=== PATIENT | female | born 1980 | race Caucasian/White ===

== ENCOUNTER 2016-12-11 18:26 | Emergency (ER) | payer MEDICAID ==
[~2016-12-11] VITALS: Ht 170.2 cm; Wt 56.7 kg
[~2016-12-11 18:26] MED LIST: AC500T PO; ACHYD1T PO; ALBU17AE23 IH; ALBU8.5H2 IH; ALBU8.5H2 INH; ALPR1T PO; ALPR1TAB7; AZIT-21 PO; AZIT200S47 PO; CEFD300C PO; CEPH-38 PO; CIPR500T4 PO; CLIN-62 PO; CLIN300C3 PO; CYCL10TA9 PO; DCS100C PO; DESV100T; DESV100T PO; FLC100T1 PO; FLINTSTONE1 TAB.CHE4 PO; GENT15DR4 LEFT EAR; HYDR-34 PO; HYDR-757 PO; HYDR1TAB PO; HYDR1TAB75 PO; HYDR30CR87 TP; IBP800T PO; LACT1CAP66 PO; METR500T PO; MULT-241 PO; MUPI1OIN5 NS; NAPR-243 PO; NITR100C3 PO; OMEP-10 PO; ONDAN4ODT PO; PENI500T PO; PREN1TAB39 PO; SULF-222 PO; TRAM-21 PO; TRM50T PO
[2016-12-11] MEDS ORDERED: ESCI10TA55 (19:24)
[2016-12-11] MEDS ORDERED: ALPR0.5T7 (19:24)
--- NOTE | 2016-12-11 19:37 | ED GU-Female ---
General Chief Complaint: -Female Stated Complaint: CYST/PELVIC PAIN Nursing Triage Note: VAGINAL PAIN Nursing Sepsis Screen: No Definite Risk Source: patient, other (friend) Exam Limitations: other (History difficult as patient is agitated and does not want to answer questions. ) History of Present Illness Time seen by provider: 19:36 Initial Comments 36 yo female patient presents to the emergency department with c/o suprapubic pain radiating into the right lower quadrant and vaginal region. States also radiates into the low back. Does have a h/o endometriosis. has had a hysterectomy and left oophorectomy. had n/v yesterday. History difficult as patient is agitated and does not want to answer questions. Timing/Duration: yesterday, getting worse Severity/Quality: aching, sharp Location: suprapubic Radiation: RLQ, back (rt low back), vaginal Activities at Onset: none Prior Genitourinary Problems: none Sexual [place] History: less than 2 months ago, single partner Modifying Factors: Worsens With Movement, Worsens With Palpation Allergies and Home Medications Allergies Coded Allergies: Penicillins (Unverified Allergy, Unknown, 02/04/13) acetaminophen (Unverified Allergy, Unknown, NAUSEA, 07/17/14) propoxyphene napsylate (Unverified Allergy, Unknown, NAUSEA, 07/17/14) Home Medications Albuterol Sulfate 8.5 Gm Aer.w.adap, 1 INHALER INH UD, #8 (Reported) Alprazolam 0.5 Mg Tablet, #42 (Reported) Escitalopram Oxalate 10 Mg Tablet, #30 (Reported) Constitutional: No chills, No fever, No malaise Respiratory: no symptoms reported Cardiovascular: no symptoms reported Gastrointestinal: see HPI, abdominal pain, No constipation, No diarrhea, No nausea (denies current nausea), No vomiting (denies current vomiting.) Genitourinary: see HPI, denies burning, denies discharge, denies dysuria, frequency, denies flank pain, denies hematuria, pain Musculoskeletal: see HPI, back pain, No joint pain Skin: no symptoms reported Psychiatric/Neurological: No Symptoms Reported All Other Systemes Reviewed Negative Unless Noted: Yes (Negative excepted noted.) Past Jomdnjo-Grmtde-Tesygt Hx Patient Social History Alcohol Use: Denies Use Recreational Drug Use: No Smoking Status: Current Everyday Smoker Type Used: Cigarettes 2nd Hand Smoke Exposure: Yes Recent Foreign Travel: No Contact w/Someone Who Travel: No Recent Infectious Disease Expo: No Recent Hopitalizations: No Immunizations Up To Date Tetanus Booster (TDap): Unknown Seasonal Allergies Seasonal Allergies: Yes Surgeries HX Surgeries: Yes (Left ovary removed. ) Surgeries: Hysterectomy Respiratory Hx Respiratory Disorders: Yes Respiratory Disorders: Asthma Cardiovascular Hx Cardiac Disorders: No Neurological Hx Neurological Disorders: No Reproductive System : No Hx Reproductive Disorders: Yes (DUB, VAGINAL PROLAPSE) BUSINESS LOAN PROCESSOR History: Hysterectomy Genitourinary Hx Genitourinary Disorders: Yes (LAPAROSCOPY FOR INCONTINENCE) Gastrointestinal Hx Gastrointestinal Disorders: No (CONSTIPATION) Musculoskeletal Hx Musculoskeletal Disorders: Yes (SCOLOSIS) Musculoskeletal Disorders: Scoliosis Endocrine Hx Endocrine Disorders: Yes (hypoglycemia) HEENT HX ENT Disorders: Yes (ROTTEN TEETH) Cancer Hx Cancer: Yes Cancer: Cervical Psychosocial Hx Psychiatric Problems: Yes Behavioral Health Disorders: Anxiety Integumentary HX Skin/Integumentary Disorder: No Blood Transfusions Hx Blood Disorders: No Reviewed Nursing Assessment Reviewed/Agree w Nursing PMH: Yes Family Medical History Significant Family History: No Pertinent Family Hx Physical Exam Vital Signs Vital Sign - Last 12Hours 12/11/16 19:24 Temp 97.1 Pulse 93 Resp 18 B/P (MAP) 142/107 Pulse Ox 98 O2 Delivery Room Air Capillary Refill : Less Than 3 Seconds General Appearance: no apparent distress, other (agitated female, NAD.), thin HEENT: PERRL/EOMI, pharynx normal Neck: supple, normal inspection Cardiovascular: normal peripheral pulses, regular rate, rhythm, no edema, no murmur Respiratory: lungs clear, normal breath sounds, no respiratory distress Gastrointestinal: normal bowel sounds, soft, no organomegaly, No distended, guarding (RLQ, suprapubic), rebound, tenderness (generalized lower abdominal tenderness.), No hernia, No mass, other (patient repeatedly asked to move her hands from her abdomen so that I can complete the exam. patient is agitated and states "You can stop that right now!" when this examiner is palpating the lower abdomen. ) Back: normal inspection, no CVA tenderness Extremities: no pedal edema, normal capillary refill Neurologic/Psychiatric: alert, oriented x 3, other (agitated, depressed.) Skin: normal color, warm/dry Progress/Results/Core Measures Results/Orders Lab Results Laboratory Tests Test 12/11/16 19:55 Range/Units White Blood Count 15.9 H 4.3-11.0 10^3/uL Red Blood Count 4.31 L 4.35-5.85 10^6/uL Hemoglobin 13.7 11.5-16.0 G/DL Hematocrit 40 35-52 % Mean Corpuscular Volume 93 80-99 FL Mean Corpuscular Hemoglobin 32 25-34 PG Mean Corpuscular Hemoglobin Concent 34 32-36 G/DL Red Cell Distribution Width 12.6 10.0-14.5 % Platelet Count 271 130-400 10^3/uL Mean Platelet Volume 10.5 H 7.4-10.4 FL Neutrophils (%) (Auto) 76 H 42-75 % Lymphocytes (%) (Auto) 19 12-44 % Monocytes (%) (Auto) 4 0-12 % Eosinophils (%) (Auto) 1 0-10 % Basophils (%) (Auto) 0 0-10 % Neutrophils # (Auto) 12.2 H 1.8-7.8 X 10^3 Lymphocytes # (Auto) 3.0 1.0-4.0 X 10^3 Monocytes # (Auto) 0.6 0.0-1.0 X 10^3 Eosinophils # (Auto) 0.1 0.0-0.3 10^3/uL Basophils # (Auto) 0.0 0.0-0.1 10^3/uL Neutrophils % (Manual) 79 % Lymphocytes % (Manual) 21 % Monocytes % (Manual) 0 % Eosinophils % (Manual) 0 % Basophils % (Manual) 0 % Band Neutrophils 0 % Blood Morphology Comment NORMAL Urine Color YELLOW Urine Clarity CLEAR Urine pH 7 5-9 Urine Specific Barton 1.005 L 1.016-1.022 Urine Protein NEGATIVE NEGATIVE Urine Glucose (UA) NEGATIVE NEGATIVE Urine Ketones NEGATIVE NEGATIVE Urine Nitrite NEGATIVE NEGATIVE Urine Bilirubin NEGATIVE NEGATIVE Urine Urobilinogen NORMAL NORMAL MG/DL Urine Leukocyte Esterase 2+ H NEGATIVE Urine RBC (Auto) 4+ H NEGATIVE Urine RBC 5-10 H /HPF Urine WBC 5-10 H /HPF Urine Squamous Epithelial Cells 0-2 /HPF Urine Crystals NONE /LPF Urine Bacteria FEW H /HPF Urine Casts NONE /LPF Urine Mucus NEGATIVE /LPF Urine Culture Indicated YES Sodium Level 139 135-145 MMOL/L Potassium Level 3.9 3.6-5.0 MMOL/L Chloride Level 107 98-107 MMOL/L Carbon Dioxide Level 20 L 21-32 MMOL/L Anion Gap 12 5-14 MMOL/L Blood Urea Nitrogen 6 L 7-18 MG/DL Creatinine 0.67 0.60-1.30 MG/DL Estimat Glomerular Filtration Rate > 60 BUN/Creatinine Ratio 9 Glucose Level 96 70-105 MG/DL Calcium Level 9.5 8.5-10.1 MG/DL Total Bilirubin 0.2 0.1-1.0 MG/DL Aspartate Amino Transf (AST/SGOT) 15 5-34 U/L Alanine Aminotransferase (ALT/SGPT) 9 0-55 U/L Alkaline Phosphatase 107 40-136 U/L C-Reactive Protein High Sensitivity 1.09 H 0.00-0.50 MG/DL Total Protein 7.5 6.4-8.2 G/DL Albumin 4.5 3.2-4.5 G/DL My Orders Orders - ERICA CHAU PA Ua Culture If Indicated (12/11/16 19:42) Cbc With Automated Diff (12/11/16 19:50) Comprehensive Metabolic Panel (12/11/16 19:50) Hs C Reactive Protein (12/11/16 19:50) Saline Lock/Iv-Start (12/11/16 19:50) Ct Abdomen/Pelvis W (12/11/16 19:50) Ketorolac Injection (Toradol Injection) (12/11/16 19:50) Ns Iv 1000 Ml (Sodium Chloride 0.9%) (12/11/16 19:50) Iohexol Injection (Omnipaque 350 Mg/Ml 1 (12/11/16 20:00) Ns (Ivpb) (Sodium Chloride 0.9% Ivpb Bag (12/11/16 20:00) Manual Differential (12/11/16 19:55) Urine Culture (12/11/16 19:55) Medications Given in ED Current Medications Medications Dose Ordered Sig/Carey Route Start Time Stop Time Status Last Admin Dose Admin Iohexol 100 ml ONCE ONCE IV 12/11/16 20:00 12/11/16 20:01 DC 12/11/16 20:44 100 ML Sodium Chloride 100 ml ONCE ONCE IV 12/11/16 20:00 12/11/16 20:01 DC 12/11/16 20:44 80 ML Sodium Chloride 1,000 ml @ 0 mls/hr Q0M ONCE IV 12/11/16 19:50 12/11/16 19:52 DC 12/11/16 20:00 0 MLS/HR Vital Signs/I&O Vital Sign - Last 12Hours 12/11/16 19:24 Temp 97.1 Pulse 93 Resp 18 B/P (MAP) 142/107 Pulse Ox 98 O2 Delivery Room Air Blood Pressure Mean: 119 Diagnostic Imaging Diagonstic Imaging: CT Plain Films/CT/US/NM/MRI: abdomen, pelvis Comments FINDINGS: Lung bases are clear. Liver and gallbladder appear normal. Bile ducts are not dilated. Pancreas and spleen are normal. Adrenal glands and kidneys appear normal. There is normal enhancement of the abdominal organs and vessels following IV contrast. Stomach is not distended. The distal small bowel is fluid -filled showing mild distention within the pelvis. There is no evidence of transition zone to indicate obstruction. There is moderate amount of stool and gas throughout the colon from the cecum to the rectum without obstruction. No evidence of bowel wall thickening. No findings to indicate diverticulitis. The appendix is not specifically identified though no loculated fluid collections or mesenteric edema. There is no free air or free fluid. IMPRESSION: 1. Fluid- filled loops of distal small bowel in the pelvis which may represent some enteritis. No findings to indicate bowel obstruction at this time. 2. Appendix not identified though no appendicolith or focal inflammatory changes demonstrated. Lack of intra-abdominal fat does limit detail for appendix. 3. Gallbladder and bile ducts are normal. Dictated on workstation # [id number] Reviewed: Reviewed by Me (radiology report reviewed by this examiner.) Departure Impression Impression: Primary Impression: Abdominal pain Additional Impression: Urinary tract infection Disposition: HOME, SELF-CARE Condition: Improved Departure-Patient Inst. Decision time for Depature: 21:37 Referrals: DUANE GERARDO DO (PCP/Family) Primary Care Physician Patient Instructions: Viral Gastroenteritis, Adult (DC), Urinary Tract Infection, Adult (DC) Add. Discharge Instructions: All discharge instructions reviewed with patient and/or family. Voiced understanding. Tylenol extra strength [id number] as directed for pain. Ibuprofen 800 mg by mouth every 8 hours as needed for pain. Drink plenty of fluids. Follow-up with your primary care physician this week for recheck, call first thing tomorrow morning for appointment time. Return to the emergency department for worsened pain, fever, vomiting, vomiting blood, black stools, rectal bleeding, or any other concerns. Scripts Ondansetron (Ondansetron Odt) 8 Mg Tab.rapdis 8 MG PO Q6H Y for NAUSEA/VOMITING-1ST LINE, #10 TAB 0 Refills Prov: ERICA CHAU 12/11/16 Phenazopyridine HCl (Pyridium) 100 Mg Tablet 100 MG PO Q8H Y for pain, #14 TAB 0 Refills Prov: ERICA CHAU 12/11/16 Sulfamethoxazole/Trimethoprim (Bactrim Ds Tablet) 1 Each Tablet 1 EACH PO BID, #14 TAB 0 Refills Prov: ERICA CHAU 12/11/16 ERICA CHAU Dec 11, 2016 19:37
[2016-12-11] MEDS ORDERED: NS IV 1000 ML 1,000 ML IV ONE (19:50)
[2016-12-11] MEDS ORDERED: KETOROLAC 30 MG/ML VIAL IVP STA (19:50)
[2016-12-11] MEDS ORDERED: NS 100 ML (IVPB) BAG IV ONE (20:00)
[2016-12-11] MEDS ORDERED: IOHEXOL 350 MG/ML 100 ML (OMNIPAQUE 350) VIAL IV ONE (20:00)
[2016-12-11 20:23] LABS: BASOPHILS % (AUTO) 0 % (0-10); EOSINOPHILS # (AUTO) 0.1 10^3/uL (0.0-0.3); EOSINOPHILS % (AUTO) 1 % (0-10); LYMPHOCYTES % (AUTO) 19 % (12-44); MEAN CORPUSCULAR HEMOGLOBIN 32 PG (25-34); MEAN CORPUSCULAR HGB CONC 34 G/DL (32-36); MEAN CORPUSCULAR VOLUME 93 FL (80-99); MEAN PLATELET VOLUME 10.5 FL (7.4-10.4); MONOCYTES # (AUTO) 0.6 X 10^3 (0.0-1.0); MONOCYTES % (AUTO) 4 % (0-12); NEUTROPHILS # (AUTO) 12.2 X 10^3 (1.8-7.8); NEUTROPHILS % (AUTO) 76 % (42-75); PLATELET COUNT 271 10^3/uL (130-400); RED BLOOD COUNT 4.31 10^6/uL (4.35-5.85); RED CELL DISTRIBUTION WIDTH 12.6 % (10.0-14.5); WHITE BLOOD COUNT 15.9 10^3/uL (4.3-11.0)
[2016-12-11 20:24] LABS: BILIRUBIN,URINE NEGATIVE (NEGATIVE); KETONES,URINE NEGATIVE (NEGATIVE); LEUKOCYTE ESTERASE ,URINE 2+ (NEGATIVE); NITRITE,URINE NEGATIVE (NEGATIVE); PH,URINE 7 (5-9); PROTEIN,URINE NEGATIVE (NEGATIVE); UROBILINOGEN,URINE NORMAL (NORMAL)
[2016-12-11 20:32] LABS: SQUAMOUS EPITHELIAL CELL,UR 0-2 /HPF
[2016-12-11 20:45] LABS: ALANINE AMINOTRANSFERASE 9 U/L (0-55); ALBUMIN 4.5 G/DL (3.2-4.5); ANION GAP 12 MMOL/L (5-14); ASPARTATE AMINO TRANSFERASE 15 U/L (5-34); BILIRUBIN,TOTAL 0.2 MG/DL (0.1-1.0); BLOOD UREA NITROGEN 6 MG/DL (7-18); BUN/CREATININE RATIO 9; CALCIUM 9.5 MG/DL (8.5-10.1); CARBON DIOXIDE 20 MMOL/L (21-32); CHLORIDE 107 MMOL/L (98-107); CREATININE SERUM 0.67 MG/DL (0.60-1.30); GFR ESTIMATED > 60; GLUCOSE 96 MG/DL (70-105); POTASSIUM 3.9 MMOL/L (3.6-5.0); SODIUM 139 MMOL/L (135-145); TOTAL PROTEIN 7.5 G/DL (6.4-8.2); hs C REACTIVE PROTEIN 1.09 MG/DL (0.00-0.50)
--- NOTE | 2016-12-11 21:05 | Diagnostic Imaging Report ---
PROCEDURE: CT abdomen and pelvis with contrast. TECHNIQUE: Multiple contiguous axial images were obtained through the abdomen and pelvis after administration of intravenous contrast. INDICATION: Abdominal pain. History of previous hysterectomy. Comparison with 01/26/2013. FINDINGS: Lung bases are clear. Liver and gallbladder appear normal. Bile ducts are not dilated. Pancreas and spleen are normal. Adrenal glands and kidneys appear normal. There is normal enhancement of the abdominal organs and vessels following IV contrast. Stomach is not distended. The distal small bowel is fluid-filled showing mild distention within the pelvis. There is no evidence of transition zone to indicate obstruction. There is moderate amount of stool and gas throughout the colon from the cecum to the rectum without obstruction. No evidence of bowel wall thickening. No findings to indicate diverticulitis. The appendix is not specifically identified though no loculated fluid collections or mesenteric edema. There is no free air or free fluid. IMPRESSION: 1. Fluid-filled loops of distal small bowel in the pelvis which may represent some enteritis. No findings to indicate bowel obstruction at this time. 2. Appendix not identified though no appendicolith or focal inflammatory changes demonstrated. Lack of intra-abdominal fat does limit detail for appendix. 3. Gallbladder and bile ducts are normal. Dictated by: Dictated on workstation # [id number]
[2016-12-11 21:10] LABS: BAND NEUTROPHILS 0 %; BASOPHILS % (MANUAL) 0 %; EOSINOPHILS % (MANUAL) 0 %; LYMPHOCYTES % (MANUAL) 21 %; NEUTROPHILS % (MANUAL) 79 %
[2016-12-11] MEDS ORDERED: RX-TRAMADOL 50 MG (ULTRAM) TAB PPK#4 PO STA (21:40)
[2016-12-11] MEDS ORDERED: PHEN-639 PO (21:40)
[2016-12-11] MEDS ORDERED: SULF1TAB35 PO (21:40)
[2016-12-11] MEDS ORDERED: ONDA8TAB13 PO (21:40)
[2016-12-11] MEDS ORDERED: RX-TRIMETH/SULFA. 160-800 MG (BACTRIM DS) TAB PPK#2 PO STA (21:40)
[2016-12-11 21:53] VITALS: BP 132/93
== END 2016-12-11 21:49 | disposition home or self-care (01) ==
LOC: EDUNIT# 18:26 → ER 18:28
DX: N39.0 Urinary tract infection, site not specified (principal); J45.909 Unspecified asthma, uncomplicated; F17.210 Nicotine dependence, cigarettes, uncomplicated; Z85.41 Personal history of malignant neoplasm of cervix uteri; Z90.710 Acquired absence of both cervix and uterus; Z90.721 Acquired absence of ovaries, unilateral
CPT/HCPCS: 36415; 74177; 80053; 81000; 85007; 85027; 86141; 87077; 87088; 87186

== ENCOUNTER 2016-12-28 05:25 | Emergency (ER) | payer MEDICAID ==
[~2016-12-28] VITALS: Ht 170.2 cm; Wt 54.4 kg
[~2016-12-28 05:25] MED LIST changes: +ALPR0.5T7; +ESCI10TA55; +ONDA8TAB13 PO; +PHEN-639 PO; +SULF1TAB35 PO
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
[2016-12-28 05:58] VITALS: BP 127/94
[2016-12-28] MEDS ORDERED: TETANUS,DIPTH,PERTUSS P/F (BOOSTRIX) 0.5 ML VIAL IM ONE (06:00)
[2016-12-28] MEDS ORDERED: ACETAMINOPHEN 325 MG TABLET/CAPLET (TYLENOL) PO ONE (06:00)
--- OUTSIDE RECORDS SUMMARY | 2016-12-29 17:53 | XMS REPORT | Continuity of Care Document ---
Author Author [facility] Address Unknown Phone Unavailable Allergies Active Description Code Type Severity Reaction Onset Reported/Identified Relationship to Patient Clinical Status Yes Darvocet A500 Drug Allergy N/A N/A 06/14/2010 Yes Darvocet A500 Drug Allergy 06/14/2010 Yes Penicillins Drug Allergy N/A N/A 10/11/2012 Yes Penicillins Drug Allergy 10/11/2012 Yes meloxicam 7.5 mg tablet Drug Allergy N/A N/A 10/16/2012 Yes meloxicam 7.5 mg tablet Drug Allergy 10/16/2012 Yes Penicillins [id number] Drug Allergy Unknown N/A 02/04/2013 Yes acetaminophen [id number] Drug Allergy Unknown NAUSEA 07/17/2014 Yes propoxyphene napsylate [id number] Drug Allergy Unknown NAUSEA 07/17/2014 Medications Problems Date Dx Coded Attending Type Code Diagnosis Diagnosed By 05/15/2009 Ot V07.2 07/14/2009 Ot 661.43 07/31/2009 Ot 644.03 01/24/2010 Ot 462 01/24/2010 Ot 521.00 03/17/2010 FRANCISCO WALSH DDS N 625.0 DYSPAREUNIA 03/17/2010 FRANCISCO WALSH DDS N 625.9 UNSPECIFIED SYMPTOM ASSOCIATED WITH FEMALE GENITAL ORGANS 03/17/2010 FRANCISCO WALSH DDS N 625.0 DYSPAREUNIA 03/17/2010 FRANCISCO WALSH DDS N 625.9 UNSPECIFIED SYMPTOM ASSOCIATED WITH FEMALE GENITAL ORGANS 03/17/2010 625.0 DYSPAREUNIA 03/17/2010 625.9 UNSPECIFIED SYMPTOM ASSOCIATED WITH FEMALE GENITAL ORGANS 03/17/2010 ROSEANNA HERRERA MD 625.0 DYSPAREUNIA 03/17/2010 ROSEANNA HERRERA MD 625.9 UNSPECIFIED SYMPTOM ASSOCIATED WITH FEMALE GENITAL ORGANS 03/17/2010 625.0 DYSPAREUNIA 03/17/2010 625.9 UNSPECIFIED SYMPTOM ASSOCIATED WITH FEMALE GENITAL ORGANS 03/17/2010 625.0 DYSPAREUNIA 03/17/2010 625.9 UNSPECIFIED SYMPTOM ASSOCIATED WITH FEMALE GENITAL ORGANS 03/17/2010 ROSEANNA HERRERA MD 625.0 DYSPAREUNIA 03/17/2010 ROSEANNA HERRERA MD 625.9 UNSPECIFIED SYMPTOM ASSOCIATED WITH FEMALE GENITAL ORGANS 03/17/2010 WHITE DDS, EULALIO D 625.0 DYSPAREUNIA 03/17/2010 WHITE DDS, EULALIO D 625.9 UNSPECIFIED SYMPTOM ASSOCIATED WITH FEMALE GENITAL ORGANS 03/17/2010 NORTON DDS, JILLIAN 625.0 DYSPAREUNIA 03/17/2010 NORTON DDS, JILLIAN 625.9 UNSPECIFIED SYMPTOM ASSOCIATED WITH FEMALE GENITAL ORGANS 06/14/2010 MUOGHALU DDS, FRANCISCO N 132.0 PEDICULUS CAPITIS (HEAD LOUSE) 06/14/2010 MUOGHALU DDS, FRANCISCO N 461.9 SINUSITIS ACUTE 06/14/2010 MUOGHALU DDS, FRANCISCO N 132.0 PEDICULUS CAPITIS (HEAD LOUSE) 06/14/2010 MUOGHALU DDS, FRANCISCO N 461.9 SINUSITIS ACUTE 06/14/2010 132.0 PEDICULUS CAPITIS (HEAD LOUSE) 06/14/2010 461.9 SINUSITIS ACUTE 06/14/2010 ROSEANNA HERRERA MD 132.0 PEDICULUS CAPITIS (HEAD LOUSE) 06/14/2010 ROSEANNA HERRERA MD 461.9 SINUSITIS ACUTE 06/14/2010 132.0 PEDICULUS CAPITIS (HEAD LOUSE) 06/14/2010 461.9 SINUSITIS ACUTE 06/14/2010 132.0 PEDICULUS CAPITIS (HEAD LOUSE) 06/14/2010 461.9 SINUSITIS ACUTE 06/14/2010 ROSEANNA HERRERA MD 132.0 PEDICULUS CAPITIS (HEAD LOUSE) 06/14/2010 ROSEANNA HERRERA MD 461.9 SINUSITIS ACUTE 06/14/2010 WHITE DDS, EULALIO D 132.0 PEDICULUS CAPITIS (HEAD LOUSE) 06/14/2010 WHITE DDS, EULALIO D 461.9 SINUSITIS ACUTE 06/14/2010 NORTON DDS, JILLIAN 132.0 PEDICULUS CAPITIS (HEAD LOUSE) 06/14/2010 ERROL BRANDON, JILLIAN 461.9 SINUSITIS ACUTE 12/27/2010 Ot 623.8 12/27/2010 Ot 646.83 12/27/2010 Ot 787.02 02/15/2011 Ot 525.9 03/05/2011 Ot 623.8 03/05/2011 Ot 654.73 03/05/2011 Ot V45.89 05/02/2011 Ot 644.03 06/13/2011 Ot 648.73 06/13/2011 Ot 719.45 06/13/2011 Ot 724.5 06/13/2011 Ot V57.1 07/01/2011 Ot 644.03 THRT TIM LABOR-ANTEPART 07/24/2011 Ot 380.10 INFEC OTITIS EXTERNA NOS 07/24/2011 Ot 648.92 OTH CURR COND-DEL W P/P 07/24/2011 Ot 658.01 OLIGOHYDRAMNIOS-DELIVER 07/24/2011 Ot 664.01 DEL W 1 DEG LACERAT-DEL 07/24/2011 Ot 671.82 KATHRYN COMP NEC-DELIV W P/P 07/24/2011 Ot V04.81 ND FOR PROPHYLACTIC VACCIN AND INOCULATI 07/24/2011 Ot V06.1 [id number], COMBINED [ 07/24/2011 Ot V27.0 DELIVER-SINGLE LIVEBORN 12/08/2011 FRANCISCO WALSH DDS N V25.09 CONTRACEPTIVE COUNSELING - GENERAL 12/08/2011 FRANCISCO WALSH DDS N V65.45 STD COUNSELING 12/08/2011 FRANCISCO WALSH DDS N V74.5 STD SCREEN 12/08/2011 JILLIAN BRANDON, FRANCISCO N V76.2 CERVICAL CANCER SCREENING (PAP SMEAR) 12/08/2011 FRANCISCO WALSH DDS N V25.09 CONTRACEPTIVE COUNSELING - GENERAL 12/08/2011 FRANCISCO WALSH DDS N V65.45 STD COUNSELING 12/08/2011 JILLIAN BRANDON, FRANCISCO N V74.5 STD SCREEN 12/08/2011 FRANCISCO WALSH DDS N V76.2 CERVICAL CANCER SCREENING (PAP SMEAR) 12/08/2011 V25.09 CONTRACEPTIVE COUNSELING - GENERAL 12/08/2011 V65.45 STD COUNSELING 12/08/2011 V74.5 STD SCREEN 12/08/2011 V76.2 CERVICAL CANCER SCREENING (PAP SMEAR) 12/08/2011 ROSEANNA HERRERA MD V25.09 CONTRACEPTIVE COUNSELING - GENERAL 12/08/2011 ROSEANNA HERRERA MD V65.45 STD COUNSELING 12/08/2011 ROSEANNA HERRERA MD V74.5 STD SCREEN 12/08/2011 ROSEANNA HERRERA MD V76.2 CERVICAL CANCER SCREENING (PAP SMEAR) 12/08/2011 V25.09 CONTRACEPTIVE COUNSELING - GENERAL 12/08/2011 V65.45 STD COUNSELING 12/08/2011 V74.5 STD SCREEN 12/08/2011 V76.2 CERVICAL CANCER SCREENING (PAP SMEAR) 12/08/2011 V25.09 CONTRACEPTIVE COUNSELING - GENERAL 12/08/2011 V65.45 STD COUNSELING 12/08/2011 V74.5 STD SCREEN 12/08/2011 V76.2 CERVICAL CANCER SCREENING (PAP SMEAR) 12/08/2011 ROSEANNA HERRERA MD V25.09 CONTRACEPTIVE COUNSELING - GENERAL 12/08/2011 ROSEANNA HERRERA MD V65.45 STD COUNSELING 12/08/2011 ROSEANNA HERRERA MD V74.5 STD SCREEN 12/08/2011 ROSEANNA HERRERA MD V76.2 CERVICAL CANCER SCREENING (PAP SMEAR) 12/08/2011 EULALIO HOUSE DDS V25.09 CONTRACEPTIVE COUNSELING - GENERAL 12/08/2011 HAR[place]OUIS[place] V65.45 STD COUNSELING 12/08/2011 WHITE ASPENSEULALIO V74.5 STD SCREEN 12/08/2011 HAR[place] V76.2 CERVICAL CANCER SCREENING (PAP SMEAR) 12/08/2011 JILLIAN NORTON DDS V25.09 CONTRACEPTIVE COUNSELING - GENERAL 12/08/2011 JILLIAN NORTON DDS V65.45 STD COUNSELING 12/08/2011 JILLIAN NORTON DDS V74.5 STD SCREEN 12/08/2011 JILLIAN NORTON DDS V76.2 CERVICAL CANCER SCREENING (PAP SMEAR) 12/30/2011 Ot 521.00 UNSPEC DENTAL CARIES 12/30/2011 Ot 525.9 DENTAL DISORDER NOS 01/11/2012 Ot 338.18 OTHER ACUTE POSTOPERATIVE PAIN 01/11/2012 Ot 521.00 UNSPEC DENTAL CARIES 01/11/2012 Ot 523.10 CHRONIC GINGIVITIS, PLAQUE INDUCED 01/11/2012 Ot 585.9 CHRONIC KIDNEY DISEASE, UNSPECIFIED 09/07/2012 626.2 MENORRHAGIA 09/07/2012 724.1 upper back pain (between shoulder blades) 09/07/2012 ROSEANNA HERRERA MD 626.2 MENORRHAGIA 09/07/2012 ROSEANNA HERRERA MD 724.1 upper back pain (between shoulder blades) 09/07/2012 626.2 MENORRHAGIA 09/07/2012 724.1 upper back pain (between shoulder blades) 09/07/2012 626.2 MENORRHAGIA 09/07/2012 724.1 upper back pain (between shoulder blades) 09/07/2012 ROSEANNA HERRERA MD 626.2 MENORRHAGIA 09/07/2012 ROSEANNA HERRERA MD 724.1 upper back pain (between shoulder blades) 09/07/2012 HAR[place]OUIS[place]UL[place]IO 626.2 MENORRHAGIA 09/07/2012 [place] 724.1 upper back pain (between shoulder blades) 09/07/2012 JILLIAN NORTON DDS 626.2 MENORRHAGIA 09/07/2012 ERROL LOUISESJILLIAN 724.1 upper back pain (between shoulder blades) 10/11/2012 623.5 LEUKORRHEA NOT SPECIFIED INFECTIVE 10/11/2012 623.5 LEUKORRHEA NOT SPECIFIED INFECTIVE 10/11/2012 ROSEANNA HERRERA MD 623.5 LEUKORRHEA NOT SPECIFIED INFECTIVE 10/11/2012 HARSH LOUISESEULALIO D 623.5 LEUKORRHEA NOT SPECIFIED INFECTIVE 10/11/2012 JILLIAN NORTON DDS 623.5 LEUKORRHEA NOT SPECIFIED INFECTIVE 02/02/2013 LANCE GIRON MD Ot 618.4 UTERVAGINAL PROLAPSE NOS 02/02/2013 LANCE GIRON MD Ot 620.2 OVARIAN CYST NEC/NOS 02/02/2013 LANCE GIRON MD Ot 620.8 NONINFL DIS OVA/ADNX NEC 02/02/2013 LANCE GIRON MD Ot 625.6 FEM STRESS INCONTINENCE 02/02/2013 LANCE GIRON MD Ot 626.2 EXCESSIVE MENSTRUATION 02/02/2013 LANCE GIRON MD Ot 626.8 MENSTRUAL DISORDER NEC 02/04/2013 LANCE GIRON MD Ot 285.1 AC POSTHEMORRHAG ANEMIA 02/04/2013 LANCE GIRON MD Ot 568.81 HEMOPERITONEUM 02/04/2013 LANCE GIRON MD Ot 998.11 HEMOR COMPLIC A PROCEDURE 10/23/2013 FINA MCCLAIN, TORI A Ot 462 ACUTE PHARYNGITIS 02/21/2014 ANDREW SALAZAR RADIO TIME BUYER Ot 525.9 DENTAL DISORDER NOS 02/28/2014 ANDREW SALAZAR RADIO TIME BUYER Ot 521.00 UNSPEC DENTAL CARIES 02/28/2014 ANDREW SALAZAR RADIO TIME BUYER Ot 525.9 DENTAL DISORDER NOS 04/23/2014 TASHA MCCLAIN, EDILMA Rico Ot 959.19 OTH INJURY OF OTHER SITES OF TRUNK 04/23/2014 EDILMA CORDOVA MD Ot E000.8 OTHER EXTERNAL CAUSE STATUS 04/23/2014 EDILMA CORDOVA MD Ot E928.9 ACCIDENT NOS 06/26/2014 Ot 658.03 06/26/2014 Ot 625.0 06/26/2014 LANCE GIRON MD Ot 285.9 06/26/2014 LANCE GIRON MD Ot 618.00 06/26/2014 LANCE GIRON MD Ot 625.6 06/26/2014 LANCE GIRON MD Ot 626.8 06/26/2014 LANCE GIRON MD Ot V72.83 06/26/2014 LANCE GIRON MD, Ot V74.8 06/26/2014 LANCE GIRON MD Ot 786.50 06/26/2014 LANCE GIRON MD Ot 787.02 06/26/2014 LANCE GIRON MD Ot 789.06 06/26/2014 LANCE GIRON MD Ot 787.02 06/26/2014 SIMA MCCLAIN, LANCE Patrick Ot 789.06 06/26/2014 ERICA PHILIPPE Ot 473.9 CHRONIC SINUSITIS NOS 06/26/2014 ERICA PHILIPPE Ot 521.00 UNSPEC DENTAL CARIES 06/26/2014 ERICA PHILIPPE Ot 786.2 COUGH 06/27/2014 Ot 658.03 06/27/2014 Ot 625.0 06/27/2014 LANCE GIRON MD Ot 285.9 06/27/2014 LANCE GIRON MD Ot 618.00 06/27/2014 LANCE GIRON MD Ot 625.6 06/27/2014 LANCE GIRON MD Ot 626.8 06/27/2014 LANCE GIRON MD Ot V72.83 06/27/2014 LANCE GIRON MD Ot V74.8 06/27/2014 LANCE GIRON MD Ot 786.50 06/27/2014 LANCE GIRON MD Ot 787.02 06/27/2014 LANCE GIRON MD Ot 789.06 06/27/2014 LANCE GIRON MD Ot 787.02 06/27/2014 LANCE GIRON MD Ot 789.06 06/29/2014 ANDREW SALAZAR APRN Ot 379.91 PAIN IN OR AROUND EYE 06/29/2014 ANDREW SALAZAR APRN Ot 918.1 SUPERFICIAL INJ CORNEA 06/29/2014 ANDREW SALAZAR APRN Ot E000.8 OTHER EXTERNAL CAUSE STATUS 06/29/2014 ANDREW SALAZAR APRN Ot E914 FB ENTERING EYE 08/01/2014 ANDREW SALAZAR APRN Ot 338.18 OTHER ACUTE POSTOPERATIVE PAIN 08/01/2014 ANDREW SALAZAR APRN Ot 525.9 DENTAL DISORDER NOS 11/24/2014 Ot 658.03 11/24/2014 Ot 625.0 11/24/2014 LANCE GIRON MD Ot 285.9 11/24/2014 LANCE GIRON MD Ot 618.00 11/24/2014 SIMA MCCLAIN, LANCE Celina Ot 625.6 11/24/2014 SIMA MCCLAIN, LANCE G Ot 626.8 11/24/2014 SIMA MCCLAIN, LANCE Celina Ot V72.83 11/24/2014 SIMA MCCLAIN, LANCE Celina Ot V74.8 11/24/2014 SIMA MCCLAIN, LANCE G Ot 786.50 11/24/2014 SIMA MCCLAIN, LANCE Celina Ot 787.02 11/24/2014 SIMA MCCLAIN, LANCE G Ot 789.06 11/24/2014 SIMA MCCLAIN, LANCE Patrick Ot 787.02 11/24/2014 SIMA MCCLAIN, LANCE G Ot 789.06 11/24/2014 ANDREW SALAZAR APRN Ot 525.9 DENTAL DISORDER NOS 12/24/2014 Ot 658.03 12/24/2014 Ot 625.0 12/24/2014 SIMA MCCLAIN, LANCE G Ot 285.9 12/24/2014 SIMA MCCLAIN, LANCE G Ot 618.00 12/24/2014 SIMA MCCLAIN, LANCE G Ot 625.6 12/24/2014 SIMA MCCLAIN, LANCE G Ot 626.8 12/24/2014 SIMA MCCLAIN, LANCE Celina Ot V72.83 12/24/2014 SIMA MCCLAIN, LANCE G Ot V74.8 12/24/2014 SIMA MCCLAIN, LANCE Celina Ot 786.50 12/24/2014 SIMA MCCLAIN, LANCE Celina Ot 787.02 12/24/2014 SIMA MCCLAIN, LANCE G Ot 789.06 12/24/2014 SIMA MCCLAIN, LANCE Patrick Ot 787.02 12/24/2014 SIMA MCCLAIN, LANCE Patrick Ot 789.06 01/02/2015 SIMA MCCLAIN, LANCE Patrick Ot 787.02 01/02/2015 SIMA MCCLAIN, LANCE Patrick Ot 789.06 01/21/2015 ANDREW SALAZAR APRN Ot 616.10 VAGINITIS NOS 01/21/2015 ANDREW SALAZAR RADIO TIME BUYER Ot 623.8 NONINFLAM DIS VAGINA NEC 01/21/2015 ANDREW SALAZAR RADIO TIME BUYER Ot 682.2 CELLULITIS OF TRUNK 12/11/2016 LANCE GIRON MD Ot 285.9 ANEMIA NOS 12/11/2016 LANCE GIRON MD Ot 618.00 UNSPECIFIED PROLAPSE OF VAGINAL WALKER 12/11/2016 LANCE GIRON MD Ot 625.6 FEM STRESS INCONTINENCE 12/11/2016 LANCE GIRON MD, Ot 626.8 MENSTRUAL DISORDER NEC 12/11/2016 LANCE GIRON MD, Ot V72.83 EXAM PRE-OPERATIVE NEC 12/11/2016 LANCE GIRON MD, Ot V74.8 SCREEN-BACTERIAL DIS NEC 12/11/2016 LANCE GIRON MD Ot 786.50 CHEST PAIN NOS 12/11/2016 LANCE GIRON MD Ot 787.02 NAUSEA ALONE 12/11/2016 LANCE GIRON MD Ot 789.06 ABDOMINAL PAIN, EPIGASTRIC 12/11/2016 LANCE GIRON MD Ot 787.02 NAUSEA ALONE 12/11/2016 LANCE GIRON MD Ot 789.06 ABDOMINAL PAIN, EPIGASTRIC 12/11/2016 ERICA PHILIPPE Ot F17.210 NICOTINE DEPENDENCE, CIGARETTES, UNCOMPL 12/11/2016 ERICA PHILIPPE Ot J45.909 UNSPECIFIED ASTHMA, UNCOMPLICATED 12/11/2016 ERICA PHILIPPE Ot N39.0 URINARY TRACT INFECTION, SITE NOT SPECIF 12/11/2016 ERICA PHILIPPE Ot R10.2 PELVIC AND PERINEAL PAIN 12/11/2016 ERICA PHILIPPE Ot Z85.41 PERSONAL HISTORY OF MALIGNANT NEOPLASM O 12/11/2016 ERICA PHILIPPE Ot Z90.710 ACQUIRED ABSENCE OF BOTH CERVIX AND UTER 12/11/2016 ERICA PHILIPPE Ot Z90.721 ACQUIRED ABSENCE OF OVARIES, UNILATERAL 12/14/2016 ERICA PHILIPPE Ot F17.210 NICOTINE DEPENDENCE, CIGARETTES, UNCOMPL 12/14/2016 ERICA PHILIPPE Ot J45.909 UNSPECIFIED ASTHMA, UNCOMPLICATED 12/14/2016 ERICA PHILIPPE Ot N39.0 URINARY TRACT INFECTION, SITE NOT SPECIF 12/14/2016 ERICA PHILIPPE Ot R10.2 PELVIC AND PERINEAL PAIN 12/14/2016 ERICA PHILIPPE Ot Z85.41 PERSONAL HISTORY OF MALIGNANT NEOPLASM O 12/14/2016 ERICA PHILIPPE Ot Z90.710 ACQUIRED ABSENCE OF BOTH CERVIX AND UTER 12/14/2016 ERICA PHILIPPE Ot Z90.721 ACQUIRED ABSENCE OF OVARIES, UNILATERAL Procedures Code Description Performed By Performed On 96.49 OTHER INSTILLATION 08/04/2009 73.6 EPISIOTOMY 2009 75.69 REPAIR OB LACERATION NEC 07/22/2011 88512 XRAY THORACIC SPINE 3 VIEWS 09/10/2012 50782 XRAY LUMBAR SPINE MIN 4 VIEWS 09/10/2012 20202 TRICHOMONAS (IN-HOUSE) 10/11/2012 67063 CULTURE UROGENITAL 10/15/2012 79396 GC/CHLAM PROBE (STATE) 10/15/2012 OBSTE SimaHungLance 10/15/2012 54.19 LAPAROTOMY NEC Results Test Result Range Complete blood count (CBC) with automated white blood cell (WBC) differential - 12/11/16 19:55 Blood leukocytes automated count (number/volume) 15.9 10*3/ uL 4.3-11.0 Blood erythrocytes automated count (number/volume) 4.31 10*6 /uL 4.35-5.85 Venous blood hemoglobin measurement (mass/volume) 13.7 g/dL 11.5-16.0 Blood hematocrit (volume fraction) 40 % 35-52 Automated erythrocyte mean corpuscular volume 93 [foz_us] 80-99 Automated erythrocyte mean corpuscular hemoglobin (mass per erythrocyte) 32 pg 25-34 Automated erythrocyte mean corpuscular hemoglobin concentration measurement ( mass/volume) 34 g/dL 32-36 Automated erythrocyte distribution width ratio 12.6 % 10.0-14.5 Automated blood platelet count (count/volume) 271 10*3/uL 130-400 Automated blood platelet mean volume measurement 10.5 [foz_ us] 7.4-10.4 Automated blood neutrophils/100 leukocytes 76 % 42-75 Automated blood lymphocytes/100 leukocytes 19 % 12-44 Blood monocytes/100 leukocytes 4 % 0-12 Automated blood eosinophils/100 leukocytes 1 % 0-10 Automated blood basophils/100 leukocytes 0 % 0-10 Blood neutrophils automated count (number/volume) 12.2 10*3 1.8-7.8 Blood lymphocytes automated count (number/volume) 3.0 10*3 1.0-4.0 Blood monocytes automated count (number/volume) 0.6 10*3 0.0-1.0 Automated eosinophil count 0.1 10*3/uL 0.0-0.3 Automated blood basophil count (count/volume) 0.0 10*3/uL 0.0-0.1 Complete urinalysis with reflex to culture - 12/11/16 19:55 Urine color determination YELLOW NRG Urine clarity determination CLEAR NRG Urine pH measurement by test strip 7 5- 9 Specific gravity of urine by test strip 1.005 1.016-1.022 Urine protein assay by test strip, semi-quantitative NEGATIVE NEGATIVE Urine glucose detection by automated test strip NEGATIVE NEGATIVE Erythrocytes detection in urine sediment by light microscopy 4+ NEGATIVE Urine ketones detection by automated test strip NEGATIVE NEGATIVE Urine nitrite detection by test strip NEGATIVE NEGATIVE Urine total bilirubin detection by test strip NEGATIVE NEGATIVE Urine urobilinogen measurement by automated test strip (mass/volume) NORMAL NORMAL Urine leukocyte esterase detection by dipstick 2+ NEGATIVE Automated urine sediment erythrocyte count by microscopy (number/high power field) [HPF] NRG Automated urine sediment leukocyte count by microscopy (number/high power field ) [HPF] NRG Bacteria detection in urine sediment by light microscopy FEW NRG Squamous epithelial cells detection in urine sediment by light microscopy 0-2 NRG Crystals detection in urine sediment by light microscopy NONE NRG Casts detection in urine sediment by light microscopy NONE NRG Mucus detection in urine sediment by light microscopy NEGATIVE NRG Complete urinalysis with reflex to culture YES NRG Comprehensive metabolic panel - 12/11/16 19:55 Serum or plasma sodium measurement (moles/volume) 139 mmol/ L 135-145 Serum or plasma potassium measurement (moles/volume) 3.9 mmol/L 3.6-5.0 Serum or plasma chloride measurement (moles/volume) 107 mmol /L 98-107 Carbon dioxide 20 mmol/L 21-32 Serum or plasma anion gap determination (moles/volume) 12 mmol/L 5-14 Serum or plasma urea nitrogen measurement (mass/volume) 6 mg /dL 7-18 Serum or plasma creatinine measurement (mass/volume) 0.67 mg /dL 0.60-1.30 Serum or plasma urea nitrogen/creatinine mass ratio 9 NRG Serum or plasma creatinine measurement with calculation of estimated glomerular filtration rate > NRG Serum or plasma glucose measurement (mass/volume) 96 mg/dL 70-105 Serum or plasma calcium measurement (mass/volume) 9.5 mg/dL 8.5-10.1 Serum or plasma total bilirubin measurement (mass/volume) 0.2 mg/dL 0.1-1.0 Serum or plasma alkaline phosphatase measurement (enzymatic activity/volume) 107 U/L 40-136 Serum or plasma aspartate aminotransferase measurement (enzymatic activity/ volume) 15 U/L 5-34 Serum or plasma alanine aminotransferase measurement (enzymatic activity/volume ) 9 U/L 0-55 Serum or plasma protein measurement (mass/volume) 7.5 g/dL 6.4-8.2 Serum or plasma albumin measurement (mass/volume) 4.5 g/dL 3.2-4.5 Serum or plasma C reactive protein measurement (mass/volume) - 12/11/16 19:55 Serum or plasma C reactive protein measurement (mass/volume) 1.09 mg/dL 0.00-0.50 Blood manual differential performed detection - 12/11/16 19:55 Blood monocytes/100 leukocytes 0 % NR Manual blood segmented neutrophils/100 leukocytes 79 % NRG Blood band neutrophils/100 leukocytes 0 % NRG Manual blood lymphocytes/100 leukocytes 21 % NRG Manual eosinophils/100 leukocytes in nose 0 % NRG Manual blood basophils/100 leukocytes 0 % NRG Blood erythrocyte morphology finding identification NORMAL NR Bacterial urine culture - 12/11/16 19:55 Bacterial urine culture [id number] NRG COLONY COUNT >100,000/ML NR FTX;REPORTABLE SENSITIVITY REPORTED 12/13 08:10 [facility] Bacterial susceptibility panel - 12/11/16 19:55 Gentamicin susceptibility test by minimum inhibitory concentration >= NRG Trimethoprim/sulfamethoxazole susceptibility test by minimum inhibitoryconcentration >= NRG Ampicillin susceptibility test by minimum inhibitory concentration >= NRG Tobramycin susceptibility test by minimum inhibitory concentration 8 NRG Cefazolin susceptibility test by minimum inhibitory concentration <= NRG Ceftriaxone susceptibility test by minimum inhibitory concentration <= NRG Ampicillin/sulbactam susceptibility test by minimum inhibitory concentration 16 NRG Piperacillin/tazobactam susceptibility test by minimum inhibitory concentration <= NRG Ciprofloxacin susceptibility test by minimum inhibitory concentration >= NRG Meropenem susceptibility test by minimum inhibitory concentration <= NRG Nitrofurantoin susceptibility test by minimum inhibitory concentration <= NRG Aztreonam susceptibility test by minimum inhibitory concentration <= NRG Extended spectrum beta lactamase (ESBL) producing bacteria susceptibility test by minimum inhibitory concentration - NRG Encounters ACCT No. Visit Date/Time Discharge Status Pt. Type Provider Facility Loc./Unit Complaint [id number] 07/29/2014 11:00:00 07/29/2014 23: 59:59 CLS Outpatient JILLIAN NORTON DDS [id number] 02/28/2014 18:00:00 02/28/2014 23: 59:59 CLS Outpatient EULALIO HOUSE DDS [id number] 10/16/2012 15:50:00 10/16/2012 23: 59:59 CLS Outpatient ROSEANNA HERRERA MD [id number] 10/11/2012 15:01:00 10/11/2012 23: 59:59 CLS Outpatient [id number] 09/10/2012 17:02:00 09/10/2012 23: 59:59 CLS Outpatient ROSEANNA HERRERA MD [id number] 09/07/2012 15:05:00 09/07/2012 23: 59:59 CLS Outpatient [id number] 01/04/2012 16:07:00 01/04/2012 23: 59:59 CLS Outpatient FRANCISCO WALSH DDS [id number] 01/04/2012 16:07:00 01/04/2012 23: 59:59 CLS Outpatient FRANCISCO WALSH DDS [id number] 10/16/2012 15:50:00 Document Registration
== END 2016-12-28 05:58 | disposition home or self-care (01) ==
LOC: EDUNIT# 05:25 → ER 05:28
DX: S01.01XA Laceration without foreign body of scalp, initial encounter (principal); F41.9 Anxiety disorder, unspecified; J45.909 Unspecified asthma, uncomplicated; F17.210 Nicotine dependence, cigarettes, uncomplicated; X99.0XXA Assault by sharp glass, initial encounter
CPT/HCPCS: 12001; 90715

== ENCOUNTER → 2017-03-28 | Outpatient (CLI) | payer MEDICAID ==
--- NOTE | 2017-03-28 13:56 | Diagnostic Imaging Report ---
EXAMINATION: Bilateral diagnostic mammogram with tomography. The current study was also evaluated with a Computer Aided Detection (CAD) system. COMPARISON: No prior studies are available for comparison. INDICATION: Palpable lump in the outer aspect of the right breast. FINDINGS: Heterogeneously dense parenchyma is seen. No mass, architectural distortion, or suspicious cluster of calcifications is identified. IMPRESSION: Dense breasts with no definite focal abnormality. An ultrasound evaluation is pending. ACR BI-RADS Category 0: Incomplete. (Needs additional imaging evaluation). Result letter will be mailed to the patient. Note: At least 10% of breast cancer is not imaged by mammography. Dictated by: Dictated on workstation # [id number]
--- NOTE | 2017-03-28 20:58 | Diagnostic Imaging Report ---
Right breast ultrasound. INDICATION: Right breast lump and pain. FINDINGS: The area of lump and pain demonstrate no underlying lesion with normal appearance of the parenchyma seen. IMPRESSION: Negative study. Clinical followup is recommended. ACR BI-RADS Category 1: Negative. Dictated by: Dictated on workstation # [id number]
== END ==
LOC: RAD 12:30
PROVIDERS: ATTEND Family Medicine
DX: N63 Unspecified lump in breast (principal)
CPT/HCPCS: 77066

== ENCOUNTER → 2017-04-06 | Outpatient (CLI) | payer MEDICAID ==
[~2017-04-06] MED LIST changes: +GADOBUTROL 10 MMOL/10 ML (GADAVIST) VIAL IV ONE
--- NOTE | 2017-04-07 19:17 | Diagnostic Imaging Report ---
TECHNIQUE: Utilizing 1.5 Padmini GE magnet, patient was placed in a prone position with 8-channel dual breast coil utilized. Axial STIR precontrasted image and axial T1 fat-sat postcontrast high-resolution images obtained. Sagittal T2-weighted images precontrast, bilaterally, as well. Sagittal vibrant temporal images were obtained pre and post contrast with bolus technique utilized of gadolinium. Images are postcontrast immediately and subsequently for 7 minutes. Pre and post contrasted images are then evaluated with [email or web address] for evaluation of possible angiogenesis. INDICATION: Breast pain. COMPARISON: March 28, 2017. FINDINGS: Examination is slightly limited secondary to patient motion. Multiple sequences were repeated secondary to patient motion and best possible images were submitted. The bilateral breasts demonstrate severe background glandularity. The bilateral breasts demonstrate mild background enhancement. No significant axillary or internal mammary adenopathy. A 0.8 cm ovoid region of enhancement is identified within the right nipple. This demonstrates circumscribed margins and progressive kinetics. This is slightly asymmetric when compared to the left nipple. Additional scattered foci of enhancement are noted within the bilateral breasts. No additional suspicious mass or non-mass enhancement within either breast. IMPRESSION: 0.8 cm region of enhancement within the right nipple asymmetric when compared to the left nipple. This is indeterminate. Recommend targeted ultrasound of the right nipple as well as visual inspection of the right nipple. If no focal abnormality is seen on second-look ultrasound, this can be considered benign. Otherwise, unremarkable examination within the limits of the exam. ACR BI-RADS Category 0: Incomplete. (Needs additional imaging evaluation). Follow-up: Second-look ultrasound of the right nipple as described above. Dictated by: Dictated on workstation # [id number]
== END ==
LOC: RAD 10:09
PROVIDERS: ATTEND Family Medicine
DX: N63 Unspecified lump in breast (principal)
CPT/HCPCS: 77059

== ENCOUNTER → 2017-04-20 | Outpatient (CLI) | payer MEDICAID ==
[~2017-04-20] MED LIST changes: -GADOBUTROL 10 MMOL/10 ML (GADAVIST) VIAL IV ONE
--- NOTE | 2017-04-20 22:29 | Diagnostic Imaging Report ---
EXAMINATION: Right breast ultrasound. INDICATION: Right breast lump along the retroareolar region with inverted nipples. COMPARISON: Correlation with MRI of the breasts dated 04/06/17 is reviewed. FINDINGS: The nipple is retracted on the right side and appears symmetric with the left side with no significant difference. The nipple on the right side is, however, slightly more retracted. There is no suspicious mass. Hypoechoic well defined area, measuring 1.4 cm in length, is consistent with the nipple, itself. IMPRESSION: Findings are likely related to inverted nipples, bilaterally, more prominent on the right side with no definite underlying mass. Clinical followup is recommended. ACR BI-RADS Category 2: Benign findings. Result letter will be mailed to the patient. Note: At least 10% of breast cancer is not imaged by mammography. Dictated by: Dictated on workstation # [id number]
== END ==
LOC: RAD 12:06
PROVIDERS: ATTEND Family Medicine
DX: N64.59 Other signs and symptoms in breast (principal)

== ENCOUNTER → 2017-11-02 | Outpatient (CLI) | payer MEDICAID ==
--- NOTE | 2017-11-02 16:21 | Diagnostic Imaging Report ---
EXAMINATION: Cervical spine at 12:55 p.m. INDICATION: Right arm numbness. AP, lateral, and odontoid views were obtained. There are no prior studies available for comparison. FINDINGS: The lateral view does show reversal of the normal lordosis of the cervical spine. This may be secondary to muscle spasm and/or positioning. There is also fairly severe degenerative disc and bony disease at C5-6 and C4-5 and to a lesser degree at C3-4. Specifically, there is narrowing of the disc spaces at these levels and sclerosis of the opposing endplates of the vertebral bodies. Small osteophytes are also seen along the anterior inferior endplates of C3, C4, and C5. There is no fracture or acute bony abnormality identified. There is no sign of retropharyngeal edema. The lung apices are clear. IMPRESSION: 1. There is no evidence for an acute bony abnormality. 2. There is fairly severe degenerative disc and bony disease involving the mid and lower cervical spine. This is unusual for a patient of this age. If further imaging for spinal stenosis or nerve root encroachment is desired, then MRI would be recommended. Dictated by: Dictated on workstation # [id number]
== END ==
LOC: RAD 12:20
PROVIDERS: ATTEND Family Medicine
DX: M50.31 Other cervical disc degeneration, high cervical region (principal)
CPT/HCPCS: 72040

== ENCOUNTER → 2017-11-09 | Outpatient (CLI) | payer MEDICAID ==
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
== END ==
LOC: RAD 07:56
PROVIDERS: ATTEND Family Medicine
DX: M48.02 Spinal stenosis, cervical region (principal); M47.812 Spondylosis without myelopathy or radiculopathy, cervical region; M43.12 Spondylolisthesis, cervical region; Z87.828 Personal history of other (healed) physical injury and trauma
CPT/HCPCS: 72141

== ENCOUNTER 2018-01-15 11:40 | Outpatient (CLI) | payer MEDICAID ==
[~2018-01-15] VITALS: Ht 170.2 cm; Wt 58.3 kg
[2018-01-15] MEDS ORDERED: CYCL10TA9 PO (11:55)
[2018-01-15] MEDS ORDERED: ALPR0.5T7 PO (11:55)
[2018-01-15] MEDS ORDERED: RT-ALBUINH IH (11:55)
[2018-01-15] MEDS ORDERED: TRAM50TA2 PO (11:55)
[2018-01-15] MEDS ORDERED: LORA10TA76 PO (11:55)
[2018-01-15 11:59] VITALS: BP 140/102
== END 2018-01-15 12:22 ==
LOC: PREOP 11:40
PROVIDERS: ATTEND Orthopaedic Surgery
DX: Z01.818 Encounter for other preprocedural examination (principal); Z11.2 Encounter for screening for other bacterial diseases; G95.9 Disease of spinal cord, unspecified
CPT/HCPCS: 87081

== ENCOUNTER 2018-01-22 07:17 | Inpatient (IN) | payer MEDICAID ==
[2018-01-22] VITALS (13 sets, daily range): BP systolic 107–140; BP diastolic 62–91
[~2018-01-22] VITALS: Ht 170.2 cm; Wt 58.3 kg
[~2018-01-22 07:17] MED LIST changes: +ALPR0.5T7 PO; +LORA10TA76 PO; +RT-ALBUINH IH; +TRAM50TA2 PO
[2018-01-22] MEDS ORDERED: CLINDAMYCIN 600 MG/50 ML IVPB 50 ML IV ONE (07:30)
[2018-01-22] MEDS ORDERED: GENTAMICIN 40 MG/ML 2 ML INJ SDV ONE (07:33)
[2018-01-22] MEDS: LACTATED RINGERS 1,000 ML IV PRN ×2 (07:40→10:12)
[2018-01-22] MEDS ORDERED: BACITRACIN 100,000 UNIT/NS 1000 ML POUR BOTTLE IR ONE ×2 (07:45)
[2018-01-22] MEDS ORDERED: fentaNYL INJECTION 100 MCG/2 ML AMP ONE (07:59)
[2018-01-22] MEDS ORDERED: MIDAZOLAM 2 MG/2 ML (VERSED) VIAL ONE (07:59)
[2018-01-22] MEDS ORDERED: MIDAZOLAM 2 MG/2 ML (VERSED) VIAL IV ONE (08:00)
[2018-01-22] MEDS ORDERED: LACTATED RINGERS 0 ML IV ONE (09:18)
[2018-01-22] MEDS ORDERED: proPOfol 200 MG/20 ML (DIPRIVAN) VIAL IV ONE (09:18)
[2018-01-22] MEDS ORDERED: DEXMEDETOMIDINE 200 MCG/2 ML (PRECEDEX) VIAL IV ONE (09:18)
[2018-01-22] MEDS ORDERED: ONDANSETRON 4 MG/2 ML (SDV) Z0FRAN ONE (09:18)
[2018-01-22] MEDS ORDERED: LIDOCAINE PF 0.5% 50 ML (XYLOCAINE) VIAL ONE (09:18)
[2018-01-22] MEDS ORDERED: ROCURONIUM 10 MG/ML 5 ML SYRINGE IV ONE (09:18)
[2018-01-22] MEDS ORDERED: SUCCINYLCHOLINE INJ 100 MG/5 ML SYR ONE (09:18)
[2018-01-22] MEDS ORDERED: DEXAMETHASONE 10 MG/ML (DECADRON) 1 ML VIAL ONE (09:18)
[2018-01-22] MEDS ORDERED: RT-ALBUTEROL SULF 2.5 MG/3 ML PRE-MIX VIAL IH PRN (09:30)
[2018-01-22] MEDS ORDERED: BISACODYL 5 MG (DULCOLAX) TABLET PO PRN (09:30)
[2018-01-22] MEDS ORDERED: DOCUSATE SODIUM 100 MG (COLACE) CAP PO PRN (09:30)
[2018-01-22] MEDS ORDERED: BISACODYL 10 MG SUPP (DULCOLAX) PR PRN (09:30)
[2018-01-22] MEDS ORDERED: ONDANSETRON 4 MG/2 ML (SDV) Z0FRAN IV PRN (09:30)
[2018-01-22] MEDS ORDERED: LIDOCAINE PF 2% 5 ML (XYLOCAINE) VIAL ONE (10:26)
[2018-01-22] MEDS ORDERED: SEVOFLURANE (ULTANE) 15 ML INHAL SOLN ONE ×3 (10:26→10:47)
[2018-01-22] MEDS ORDERED: morphine INJ 10 MG/ML 1ML (SYR OR VIAL) ONE ×2 (10:48→11:12)
[2018-01-22] MEDS ORDERED: MEPERIDINE (DEMEROL) INJ 50 MG/ML IVP PRN (11:15)
[2018-01-22] MEDS ORDERED: ONDANSETRON 4 MG/2 ML (SDV) Z0FRAN IVP PRN (11:15)
[2018-01-22] MEDS: morphine INJ 10 MG/ML 1ML (SYR OR VIAL) IVP PRN ×3 (11:17→11:25)
--- NOTE | 2018-01-22 11:51 | Diagnostic Imaging Report ---
Indication: Fluoroscopy during cervical spine surgery. Fluoroscopy was provided in the OR for Dr. Love for cervical spine surgery. 14 seconds of fluoroscopy was utilized. Images demonstrated an anterior plate and screws transfixing C4-C6 levels. Impression: Fluoroscopy in the OR for ACDF. Dictated by: Dictated on workstation # [id number]
[2018-01-22] MEDS ORDERED: morphine INJ 4 MG/ML 1 ML (VIAL/SYRINGE) ONE (12:42)
[2018-01-22] MEDS ORDERED: BACLOFEN 10 MG (LIORESAL) TAB ONE (12:42)
[2018-01-22] MEDS: morphine INJ 10 MG/ML 1ML (SYR OR VIAL) IM PRN ×2 (12:51→18:19)
[2018-01-22] MEDS ORDERED: CYCLOBENZAPRINE 10 MG (FLEXERIL) TAB ONE (12:53)
[2018-01-22] MEDS: CYCLOBENZAPRINE 10 MG (FLEXERIL) TAB PO SCH ×2 (12:54→20:37)
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
[2018-01-22] MEDS: CLINDAMYCIN 600 MG/50 ML IVPB 50 ML IV SCH (17:52)
--- NOTE | 2018-01-22 19:40 | Consultation ---
History of Present Illness History of Present Illness Patient Consulted On(sarath/time) 01/22/18 19:37 Time Seen by Provider: 19:35 History of Present Illness Patient had cervical surgery today. Patient had pain and numbness and tingling going down both arms. Is worse on the right.. Patient had an MRI of the cervical spine which was abnormal. Patient referred to cervical neurosurgery Allergies and Home Medications Allergies Coded Allergies: Penicillins (Unverified Allergy, Unknown, 01/15/18) acetaminophen (Unverified Adverse Reaction, Mild, NAUSEA, 01/15/18) propoxyphene napsylate (Unverified Adverse Reaction, Mild, NAUSEA, 01/15/18) Home Medications Albuterol Sulfate 1 Puff Puff, 2 PUFF IH Q4H PRN for SHORTNESS OF BREATH, ( Reported) 1 PUFF = 90 MCG Alprazolam 0.5 Mg Tablet, 0.5 MG PO BID, (Reported) Cyclobenzaprine HCl 10 Mg Tablet, 10 MG PO TID, (Reported) Loratadine 10 Mg Tablet, 10 MG PO DAILY, (Reported) Tramadol HCl 50 Mg Tablet, 50 MG PO TID, (Reported) Patient Home Medication List Home Medication List Reviewed: No Past Njngwlm-Qldhox-Whubso Hx Patient Social History Alcohol Use: Denies Use Recreational Drug Use: No Smoking Status: Current Everyday Smoker Type Used: Cigarettes 2nd Hand Smoke Exposure: Yes Recent Foreign Travel: No Contact w/Someone Who Travel: No Recent Infectious Disease Expo: No Recent Hopitalizations: No Immunizations Up To Date Tetanus Booster (TDap): Unknown PED Vaccines UTD: No Seasonal Allergies Seasonal Allergies: Yes Past Medical History Surgeries: Yes (BLADDER, CYST) Hysterectomy Respiratory: Yes Asthma Cardiac: No Neurological: Yes Reproductive Disorders: Yes (DUB, VAGINAL PROLAPSE) Female Reproductive Disorders: 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 Sexually Transmitted Disease: No HIV/AIDS: No Genitourinary: No Gastrointestinal: Yes Gastroesophageal Reflux Musculoskeletal: Yes (NECK PAIN) Arthritis, Scoliosis, Chronic Back Pain Endocrine: No HEENT: No Loss of Vision: Denies Hearing Impairment: Denies Cancer: Yes Cervical What Type of Treatment Did You: Surgical Intervention Psychosocial: Yes Anxiety Integumentary: No Blood Disorders: Yes (ANEMIA) Adverse Reaction/Blood Tranf: No (HAS HAD BLOOD WITH NO REACTION) Family Medical History No Pertinent Family Hx Review of Systems-General Constitutional: weakness EENTM: no symptoms reported Respiratory: no symptoms reported Cardiovascular: no symptoms reported Gastrointestinal: no symptoms reported Genitourinary: no symptoms reported : No Physical Exam-General Problems Physical Exam Vital Signs Vital Signs - First Documented 01/22/18 07:40 Temp 98.5 Pulse 93 Resp 16 B/P (MAP) 120/86 (97) Pulse Ox 98 O2 Delivery Room Air Capillary Refill : General Appearance: no apparent distress, thin Eyes: Bilateral Eye Normal Inspection HEENT: normal ENT inspection Neck: other (Has cervical collar) Respiratory: normal breath sounds, no respiratory distress, no accessory muscle use Cardiovascular: regular rate, rhythm, no murmur Gastrointestinal: non tender, soft Assessment/Plan Assessment/Plan Admission Diagnosis/Plan Myelopathy Admission Status: Inpatient Order (span 2 midnights) Reason for Inpatient Admission: Neck surgery Clinical Quality Measures DVT/VTE Risk/Contraindication: Risk Factor Score Per Nursin RFS Level Per Nursing on Admit: 1=Low/No VTE PPX DUANE GERARDO DO Jan 22, 2018 19:40
[2018-01-22] MEDS: ALPRAZolam 0.5 MG (XANAX) TAB PO SCH (20:37)
[2018-01-23 00:39] VITALS: BP 122/82
[2018-01-23] MEDS: CLINDAMYCIN 600 MG/50 ML IVPB 50 ML IV SCH ×2 (00:39→08:04)
[2018-01-23] MEDS: morphine INJ 10 MG/ML 1ML (SYR OR VIAL) IM PRN ×2 (03:47→09:51)
[2018-01-23 04:25] VITALS: BP 132/82
[2018-01-23 06:19] LABS: MEAN PLATELET VOLUME 10.4 FL (7.4-10.4); RED BLOOD COUNT 4.09 10^6/uL (4.35-5.85); RED CELL DISTRIBUTION WIDTH 12.7 % (10.0-14.5); WHITE BLOOD COUNT 17.9 10^3/uL (4.3-11.0)
[2018-01-23 06:43] LABS: BUN/CREATININE RATIO 7; CALCIUM 9.6 MG/DL (8.5-10.1); CARBON DIOXIDE 21 MMOL/L (21-32); CHLORIDE 109 MMOL/L (98-107); CREATININE SERUM 0.59 MG/DL (0.60-1.30); GFR ESTIMATED > 60; GLUCOSE 124 MG/DL (70-105); POTASSIUM 3.8 MMOL/L (3.6-5.0); SODIUM 142 MMOL/L (135-145)
[2018-01-23] MEDS ORDERED: MULTIVIT W/MINERALS TAB (THERAGRAN M) PO SCH (07:00)
--- NOTE | 2018-01-23 07:01 | Anesthesia-General Post-Op ---
General Patient Condition Mental Status/LOC: Same as Preop Cardiovascular: Satisfactory Nausea/Vomiting: Absent Respiratory: Satisfactory Pain: Controlled Complications: Absent Post Op Complications Complications None Follow Up Care/Instructions Patient Instructions None needed. Anesthesia/Patient Condition Patient Condition Patient is doing well, no complaints, stable vital signs, no apparent adverse anesthesia problems. No complications reported per nursing. LUIZA MIJARES CRNA Jan 23, 2018 07:01
[2018-01-23] MEDS ORDERED: Oxycodone Hcl PO (07:13)
[2018-01-23] MEDS ORDERED: CYCL10TA9 PO (07:13)
[2018-01-23 08:00] VITALS: BP 132/92
[2018-01-23] MEDS: ALPRAZolam 0.5 MG (XANAX) TAB PO SCH (08:03)
[2018-01-23] MEDS: CYCLOBENZAPRINE 10 MG (FLEXERIL) TAB PO SCH (08:04)
--- NOTE | 2018-01-23 08:15 | Progress Note (SOAP) ---
Subjective Time Seen by Provider: 08:08 Subjective/Events-last exam Patient doing good. Patient feeling better. Patient has problem with swallowing but probably due to the tube when she was intubated. Not much drainage from tube Objective Exam Vital Signs Date Time Temp Pulse Resp B/P (MAP) Pulse Ox O2 Delivery O2 Flow Rate FiO2 01/23/18 07:50 95 Room Air 01/23/18 04:25 98.3 93 18 132/82 (99) 96 Room Air 01/23/18 00:39 98.2 94 19 122/82 (95) 98 Room Air 01/22/18 19:25 98.9 93 20 140/91 (107) 98 Room Air 01/22/18 17:00 97.8 78 18 108/62 (77) 96 Room Air 01/22/18 16:30 98.0 88 18 110/70 (83) 96 Room Air 01/22/18 15:30 97.6 86 18 116/77 (90) 96 Room Air 01/22/18 14:30 96.9 84 20 107/71 (83) 97 Room Air 01/22/18 14:15 Room Air 01/22/18 14:00 79 111/76 (88) 98 Room Air 01/22/18 13:30 86 118/83 (95) 97 Room Air 01/22/18 13:00 76 113/79 (90) 96 Room Air 01/22/18 12:45 72 111/78 (89) 96 Room Air 01/22/18 12:30 77 22 126/85 (99) 97 Room Air 01/22/18 12:15 76 22 123/82 (96) 97 01/22/18 12:00 98.1 81 22 112/78 (89) 96 Room Air I & O 01/23/18 07:00 Intake Total 4790 ml Output Total 3915 ml Balance 875 ml Capillary Refill : General Appearance: No Apparent Distress, Thin Neck: Other (Has cervical collar) Respiratory: Lungs Clear, Normal Breath Sounds, No Accessory Muscle Use, No Respiratory Distress Cardiovascular: Regular Rate, Rhythm Gastrointestinal: non tender, soft Results Lab Laboratory Tests 01/23/18 05:50 Laboratory Tests 01/23/18 05:50: White Blood Count 17.9H, Red Blood Count 4.09L, Hemoglobin 13.0, Hematocrit 38, Mean Corpuscular Volume 93, Mean Corpuscular Hemoglobin 32, Mean Corpuscular Hemoglobin Concent 34, Red Cell Distribution Width 12.7, Platelet Count 316, Mean Platelet Volume 10.4, Sodium Level 142, Potassium Level 3.8, Chloride Level 109H, Carbon Dioxide Level 21, Anion Gap 12, Blood Urea Nitrogen 4L, Creatinine 0.59L, Estimat Glomerular Filtration Rate > 60, BUN/Creatinine Ratio 7, Glucose Level 124H, Calcium Level 9.6 Assessment/Plan Assessment/Plan Assess & Plan/Chief Complaint Myelopathy. . 01/23/18. Patient doing good. Minimal drainage from tube. Clinical Quality Measures DVT/VTE Risk/Contraindication: Risk Factor Score Per Nursin RFS Level Per Nursing on Admit: 1=Low/No VTE PPX DUANE GERARDO DO Jan 23, 2018 08:15
[2018-01-23] MEDS ORDERED: LORATADINE (CLARITIN) 10 MG TAB PO SCH (09:00)
--- NOTE | 2018-01-23 09:47 | Discharge Summary ---
Diagnosis/Chief Complaint Date of Admission Jan 22, 2018 at 07:17 Date of Discharge Discharge Date: Jan 23, 2018 Admission Diagnosis Admission Diagnosis cervical stenosis with myelopathy Discharge Diagnosis same Reason Hospital Visit c4-6 acdf with c5 corpectomy Discharge Summary Hospital Course Hospital Course Clara was admitted for ACDF. She tolerated the procedure well. She did experience post operative pain that was controlled with oral analgesics. Labs Laboratory Tests 01/23/18 05:50: White Blood Count 17.9H, Red Blood Count 4.09L, Chloride Level 109H, Blood Urea Nitrogen 4L, Creatinine 0.59L, Glucose Level 124H Procedures None. Discharge Physical Examination Allergies: Coded Allergies: Penicillins (Unverified Allergy, Unknown, 01/15/18) acetaminophen (Unverified Adverse Reaction, Mild, NAUSEA, 01/15/18) propoxyphene napsylate (Unverified Adverse Reaction, Mild, NAUSEA, 01/15/18) Vitals & I&Os Vital Signs Date Time Temp Pulse Resp B/P (MAP) Pulse Ox O2 Delivery O2 Flow Rate FiO2 01/23/18 08:00 98.2 105 20 132/92 (105) 98 Room Air General Appearance: Alert, Oriented X3, Cooperative Respiratory: Normal Air Movement Cardiovascular: Regular Rate Abdominal: Soft, No Tenderness Extremities: No Edema, Normal Pulses Skin: No Rashes Neuro: Normal Gait, Normal Speech Discharge Home Medications Reviewed and agree with Discharge Medication list on patient's Discharge Instruction sheet Instructions to Patient/Family Please see electronic discharge instructions given to patient. Clinical Quality Measures DVT/VTE Risk/Contraindication: Risk Factor Score Per Nursin RFS Level Per Nursing on Admit: 1=Low/No VTE PPX EDILMA OSBORNE Jan 23, 2018 09:47
--- NOTE | 2018-01-23 09:49 | Discharge Inst-Simple/Standard ---
Discharge Inst-Standard Discharge Medications New, Converted or Re-Newed RX: RX on Chart Patient Instructions/Follow Up Plan of Care/Instructions/FU: follow up in clinic in 2 weeks c-collar when out of bed dont bend lift twist push or pull keep insicion clean and dry Activity as Tolerated: No Discharge Diet: Regular Diet Return to The Hospital For: fever, chills, shortness of breath, chest pain Planned Outpatient Orders/Ref. Pneu Vac Indicated: Yes EDILMA OSBORNE Jan 23, 2018 09:49
--- NOTE | 2018-01-23 10:39 | Physical Therapy Evaluation ---
PT Evaluation-General Medical Diagnosis Admission Date Jan 22, 2018 at 07:17 Medical Diagnosis: myelopathy Onset Date: Jan 22, 2018 Therapy Diagnosis Therapy Diagnosis: debility Height/Weight Height (Feet): 5 Height (Inches): 7.00 Weight (Pounds): 128 Weight (Ounces): 9.0 Precautions Precautions/Isolations: Standard Precautions Weight Bear Status Right Lower Extremity: Right Full Weight Bearing Left Lower Extremity: Left Full Weight Bearing Referral Physician: Ivan Reason for Referral: Evaluation/Treatment Medical History Pertinent Medical History: Smoking Additional Medical History pain, numbness, tingling, bilateral UE's Current History s/p C4-6 anterior cervical discectomy and fusion Reviewed History: Yes Social History Home: Single Level Current Living Status: Significant Other Prior/Core FIM Prior Level of Function Functional [place] Measure 0=Not Assessed/NA 4=Minimal Assistance 1=Total Assistance 5=Supervision or Setup 2=Maximal Assistance 6=Modified [place] 3=Moderate Assistance 7=Complete [place] Bed Mobility: 7 Transfers (B,C,W/C) (FIM): 7 Gait: 7 Locomotion: 7 PT Evaluation-Current Subjective Patient agrees to PT. Pain Numeric Pain Scale: 8 Location Body Site: Neck Pain Description: Acute Objective Patient Orientation: Normal For Age Problem Solving: Good ROM/Strength ROM Lower Extremities bilateral LE WNL Strength Lower Extremities bilateral LE WNL Integumentary/Posture Integumentary refer to nursing notes Bowel Incontinence: No Bladder Incontinence: No Posture erect Neuromuscular (Tone, Coordination, Reflexes) grossly intact Sensory Vision: Functional Hearing: Functional Sensation Right Lower Extremit: Intact Sensation Left Lower Extremity: Intact Transfers Functional [place] Measure 0=Not Assessed/NA 4=Minimal Assistance 1=Total Assistance 5=Supervision or Setup 2=Maximal Assistance 6=Modified [place] 3=Moderate Assistance 7=Complete [place] Transfers (B, C, W/C) (FIM): 7 Scootin Supine to/from Sit: 7 Sit to/from Stand: 7 Gait Mode of Locomotion: Walk Anticipated Mode of Locomotion: Walk Gait (FIM): 7 Distance (FIM): 3=150 ft Distance: 500' Gait Level of Assist: 7 Gait Assistive Device: None Comments/Gait Description safe and functional Balance Sitting Static: Normal Sitting Dynamic: Normal Standing Static: Normal Standing Dynamic: Normal Assessment/Needs 37 y.o. female, is currently at [facility] with all gross motor skills and does not requires skilled therapy intervention. Thank you for this referral. Rehab Potential: Good PT Plan Treatment/Plan Treatment Plan: Discontinue PT, goals met Treatment Plan: Other Treatment Duration: Jan 23, 2018 Frequency: 1 time per week Estimated Hrs Per Day: .25 hour per day Patient and/or Family Agrees t: Yes Time/GCodes Time In: 1002 Time Out: 1012 Total Billed Treatment Time: 10 Total Billed Treatment 1 visit EVLowC 10 min BRAN MIX PT Jan 23, 2018 10:39
[2018-01-23 11:45] VITALS: BP 132/92
== END 2018-01-23 11:45 | disposition home or self-care (01) | DRG 460 ==
LOC: 4TH 07:17 → SURG 07:18 → 4TH 12:00
PROVIDERS: ADMIT Orthopaedic Surgery; ATTEND Orthopaedic Surgery
PROC: 0SG Lower Joints, Fusion (ICD-10-PCS; principal; 2018-01-22 09:25)
DX: M48.02 Spinal stenosis, cervical region (principal); G95.9 Disease of spinal cord, unspecified; K21.9 Gastro-esophageal reflux disease without esophagitis; F41.9 Anxiety disorder, unspecified; F17.210 Nicotine dependence, cigarettes, uncomplicated
CPT/HCPCS: 36415; 80048; 85027; 94664; 94760

== ENCOUNTER → 2018-12-25 | Outpatient (CLI) | payer MEDICAID ==
[~2018-12-25] MED LIST changes: +Oxycodone Hcl PO
--- NOTE | 2018-12-25 17:53 | Diagnostic Imaging Report ---
INDICATION: Questionable glass/foreign body within the thumb. TIME OF EXAM: 02:11 p.m. FINDINGS: Multiple views of the thumb were obtained. Alignment is normal. Bony structures are intact. No fractures are seen. No definite radiopaque soft tissue foreign body is seen. Punctate opacities are identified which most likely represent dust artifact. IMPRESSION: No acute feature detected. Dictated by: Dictated on workstation # [id number]
== END ==
LOC: RAD 13:55
PROVIDERS: ATTEND Family Medicine
DX: Z03.89 Encounter for observation for other suspected diseases and conditions ruled out (principal)
CPT/HCPCS: 73140

== ENCOUNTER 2021-03-03 00:08 | Emergency (ER) | payer SELFPAY ==
[~2021-03-03] VITALS: Ht 170 cm; Wt 59.0 kg
[~2021-03-03 00:08] MED LIST changes: +ESCI-2; -ESCI10TA55; -SULF1TAB35 PO; +SULF1TAB38 PO; -TRAM50TA2 PO
[2021-03-03 00:40] VITALS: BP 157/110
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
[2021-03-03] MEDS ORDERED: ACHD5005 PO (01:23)
--- NOTE | 2021-03-03 06:25 | Diagnostic Imaging Report ---
EXAM: Left tibia and fibula radiographs EXAM DATE: 03/03/2021 COMPARISON: None. HISTORY: Left leg pain. TECHNIQUE: 4 views of left tibia and fibula. FINDINGS: There is no acute fracture, dislocation, or destructive osseous process. Visualized joint spaces are normal. The soft tissues are normal. IMPRESSION: No acute osseous abnormality of the left tibia or fibula. Dictated by: Dictated on workstation # [id number]
== END 2021-03-03 01:29 | disposition home or self-care (01) ==
LOC: EDUNIT# 00:08 → ER 00:13
DX: S80.12XA Contusion of left lower leg, initial encounter (principal); F41.9 Anxiety disorder, unspecified; J45.909 Unspecified asthma, uncomplicated; G89.29 Other chronic pain; M54.9 Dorsalgia, unspecified; Z79.899 Other long term (current) drug therapy; Z79.891 Long term (current) use of opiate analgesic; W20.8XXA Other cause of strike by thrown, projected or falling object, initial encounter
CPT/HCPCS: 73590

== ENCOUNTER 2022-02-27 17:34 | Emergency (ER) | payer SELFPAY ==
[~2022-02-27] VITALS: Ht 170.2 cm; Wt 59.0 kg
[~2022-02-27 17:34] MED LIST changes: +ACHD5005 PO; +CYCL10TA25 PO
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
[2022-02-27 22:18] VITALS: BP 182/119
== END 2022-02-27 22:18 | disposition home or self-care (01) ==
LOC: EDUNIT# 17:34 → ER 17:36
DX: S09.90XA Unspecified injury of head, initial encounter (principal); M54.2 Cervicalgia; Z98.890 Other specified postprocedural states; Z72.0 Tobacco use; Z28.310 Unvaccinated for COVID-19; Y04.8XXA Assault by other bodily force, initial encounter; Y92.009 Unspecified place in unspecified non-institutional (private) residence as the place of occurrence of the external cause
CPT/HCPCS: 70450; 70490

== ENCOUNTER 2023-02-05 16:42 | Emergency (ER) | payer SELFPAY ==
[~2023-02-05 16:42] MED LIST changes: +ALBU8.5H6 IH; -RT-ALBUINH IH
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
[2023-02-05] MEDS ORDERED: ONDANSETRON 4 MG (ZOFRAN) ORAL DISSOLVE TAB SL ONE (18:30)
[2023-02-05] MEDS ORDERED: IBUPROFEN TABLET 200 MG TAB PO ONE (18:30)
[2023-02-05] MEDS ORDERED: ACETAMINOPHEN 325 MG TABLET PO ONE (18:30)
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
[2023-02-05 18:54] VITALS: BP 140/87
== END 2023-02-05 18:54 | disposition home or self-care (01) ==
LOC: EDUNIT# 16:42 → ER 16:43
DX: S06.0X0A Concussion without loss of consciousness, initial encounter (principal); S00.83XA Contusion of other part of head, initial encounter; S00.03XA Contusion of scalp, initial encounter; M54.2 Cervicalgia; F17.210 Nicotine dependence, cigarettes, uncomplicated; Y09 Assault by unspecified means
CPT/HCPCS: 70450; 70486; 72125

== ENCOUNTER 2023-06-02 16:54 | Emergency (ER) | payer SELFPAY ==
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
[2023-06-02 17:28] VITALS: BP 156/112
== END 2023-06-02 17:28 | disposition home or self-care (01) ==
LOC: EDUNIT# 16:54 → ER 16:58
DX: S00.432D Contusion of left ear, subsequent encounter (principal); Y04.8XXD Assault by other bodily force, subsequent encounter
CPT/HCPCS: 99281

== ENCOUNTER 2023-06-17 12:48 | Emergency (ER) | payer SELFPAY ==
[~2023-06-17] VITALS: Ht 170.2 cm; Wt 68.5 kg
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
[2023-06-17] MEDS ORDERED: HYDROcodone/ACETAMINOPHEN 5 MG/325 MG TABLET PO ONE (15:00)
[2023-06-17] MEDS ORDERED: ACHD5005 PO (15:22)
[2023-06-17] MEDS ORDERED: CEPH500T PO (15:22)
[2023-06-17 15:31] VITALS: BP 136/85
== END 2023-06-17 15:31 | disposition home or self-care (01) ==
LOC: EDUNIT# 12:48 → ER 12:50
DX: S00.432A Contusion of left ear, initial encounter (principal); F17.210 Nicotine dependence, cigarettes, uncomplicated; Y04.0XXA Assault by unarmed brawl or fight, initial encounter
CPT/HCPCS: 99283